=== PATIENT | male | born 1995 | race Asian ===

== ENCOUNTER 2020-12-29 14:31 | Outpatient (REF) | payer MEDICAID, SELFPAY | END 2020-12-29 14:32 | disposition home or self-care (01) | LOC: HO.LAB 14:31 | PROVIDERS: Visit Provider Internal Medicine | DX: Z20.822 Contact with and (suspected) exposure to COVID-19 (principal) | CPT/HCPCS: C9803; U0003; U0005 ==

== ENCOUNTER 2021-04-30 12:34 | Outpatient (REF) | payer MEDICAID, SELFPAY ==
[2021-04-30 15:54] LABS: COVID-19 Test Negative (Negative); IDNOW Serial# 16C4AD1C
== END 2021-04-30 12:35 | disposition home or self-care (01) ==
LOC: HO.LAB 12:34
PROVIDERS: Visit Provider Internal Medicine
DX: Z20.822 Contact with and (suspected) exposure to COVID-19 (principal)
CPT/HCPCS: 87635; C9803